=== PATIENT | female | born 1955 | race Caucasian/White ===

== ENCOUNTER 2023-10-14 13:37 | Emergency (ER) | payer OTHER ==
[2023-10-14 14:04] VITALS: TEMP 97.9; BMI 38.4
[2023-10-14] MEDS ORDERED: ONDANSETRON 4 MG/2 ML VIAL ONE (14:47)
[2023-10-14] MEDS ORDERED: MAG HYDROX/AL HYDROX/SIMETH 30 ML UNIT-DOSE CUP ONE (14:47)
[2023-10-14] MEDS ORDERED: ACETAMINOPHEN INJECTION 100 ML IVPB ONE (14:47)
[2023-10-14] MEDS ORDERED: LABETALOL HCL 5 MG/1 ML (100MG/20 ML VIAL) ONE (14:47)
[2023-10-14] MEDS ORDERED: FAMOTIDINE 20 MG/50 ML IVPB 20 MG/50 ML MG IVPB ONE (14:47)
[2023-10-14] MEDS: ACETAMINOPHEN 1000 MG/100 ML BAG IVPB ONE (14:50)
[2023-10-14] MEDS: MAG HYDROX/AL HYDROX/SIMETH 30 ML UNIT-DOSE CUP PO ONE (14:50)
[2023-10-14] MEDS: LABETALOL HCL 5 MG/1 ML (100MG/20 ML VIAL) IVPUSH ONE (14:50)
[2023-10-14] MEDS: ONDANSETRON 4 MG/2 ML VIAL IVPUSH ONE (14:50)
[2023-10-14] MEDS: FAMOTIDINE 20 MG/50 ML IVPB 20 MG/50 ML MG IVPB ONE (14:50)
[2023-10-14 15:02] VITALS: RESP 18
[2023-10-14 15:56] LABS: POTASSIUM 3.7 mmol/L (3.5-5.1)
[2023-10-14 15:57] LABS: CALCIUM 9.3 mg/dL (8.5-10.1)
[2023-10-14 15:58] LABS: ALBUMIN 3.5 g/dl (3.4-5.0); BLOOD UREA NITROGEN 15.7 mg/dL (7-18); MAGNESIUM 2.1 mg/dL (1.8-2.4)
[2023-10-14 16:01] LABS: CREATININE 0.8 mg/dL (0.55-1.3)
[2023-10-14 16:02] LABS: TOT PROT 7.6 g/dl (6.4-8.2)
[2023-10-14 16:03] LABS: BILIRUBIN,TOTAL 0.3 mg/dL (0.2-1)
[2023-10-14 16:06] LABS: N-TERMINAL BNP 229.9 pg/ml (5-125)
[2023-10-14 16:23] LABS: BASO % 0.7 % (0-2.0); EOS % 0.4 % (0-4.5); HEMOGLOBIN 14.5 GM/dL (10.7-15.3); LYMPH % 15.7 % (8-40); MCH 29.2 pg (25.7-33.7); MEAN CELL VOLUME 88.6 fl (80-96); MEAN PLT VOLUME 9.4 fl (7.5-11.1); MONO % 3.4 % (3.8-10.2); NEUT % 79.8 % (42.8-82.8); PLATELET COUNT 266 10^3/uL (134-434); RBC 4.96 M/mm3 (3.60-5.2); RDW 13.8 % (11.6-15.6); WHITE BLOOD COUNT 10.7 K/mm3 (4.0-10.0)
[2023-10-14 16:28] LABS: VENOUS BASE EXCESS 0.6 mmol/L (-2-2); VENOUS O2 SATURATION 52.1 % (70-80); VENOUS PCO2 45.5 mmHg (38-52); VENOUS PH 7.378 (7.310-7.410)
[2023-10-14 16:32] LABS: INR 0.9 (0.83-1.09); PROTHROMBIN TIME (PATIENT) 10.4 SEC (9.7-13.0)
[2023-10-14 16:34] LABS: ACTIVATED PTT 37.7 SECONDS (25.2-36.5)
[2023-10-14] MEDS ORDERED: TICAGRELOR 90 MG TABLET PO ONE (17:18)
[2023-10-14] MEDS ORDERED: ASPIRIN 81 MG CHEWABLE TABLETS ONE (17:19)
[2023-10-14] MEDS ORDERED: HEPARIN NA (PORCINE) 5,000 UNITS/ML 1ML VIAL IVPUSH PRN ×2 (17:21)
[2023-10-14] MEDS: ASPIRIN 81 MG CHEWABLE TABLETS PO ONE (17:22)
[2023-10-14] MEDS ORDERED: HEPARIN INFUSION - 25,000 UNITS/500 ML INFUS.BAG IVPB ONE (17:29)
[2023-10-14] MEDS ORDERED: HEPARIN NA (PORCINE) 5,000 UNITS/ML 1ML VIAL ONE (17:29)
[2023-10-14] MEDS: TICAGRELOR 60 MG TABLET PO ONE (17:38)
[2023-10-14] MEDS: HEPARIN NA (PORCINE) 5,000 UNITS/ML 1ML VIAL SQ ONE (17:50)
[2023-10-14] MEDS: HEPARIN SOD,PORK IN 0.45% NACL 25,000 UNITS/500 ML INFUS.BAG IVPB SCH (17:55)
[2023-10-14 18:05] VITALS: BP 160/100; PULSE 98
== END 2023-10-14 18:00 | disposition short-term general hospital (02) ==
LOC: JER 13:37
DX: I21.4 Non-ST elevation (NSTEMI) myocardial infarction (principal); R07.2 Precordial pain; R11.0 Nausea; R00.0 Tachycardia, unspecified
CPT/HCPCS: 36415; 71045-TC-FY; 80053; 82010; 82803; 83735; 83880; 84484; 85025; 85610; 85730; 93005; 93010; 99285-25; J1644